=== PATIENT | male | born 1970 | race Caucasian/White ===

== ENCOUNTER 2021-04-06 07:09 | Day surgery (SDC) | payer OTHER, SELFPAY ==
[2021-04-06 08:09] VITALS: BP 144/77; PULSE 78; RESP 16; TEMP 36.6; O2SAT 96; BMI 42.4
[2021-04-06] MEDS: Lactated Ringers 1,000 ML 100 ML IV ×2 (08:40→10:18)
[2021-04-06] MEDS: Cefazolin 2 GM in 0.9% Normal Saline 100 ML IV (09:14)
--- NOTE | 2021-04-06 09:18 | PCM.HP.BLA ---
History and Physical Date of Admission: 04/06/21 Date of Service:? 02/19/21 Assessment & Plan Problems 1. Primary osteoarthritis of right knee? M17.11 2. Mechanical pain of right knee? M25.561 3. Class 3 severe obesity due to excess calories without serious comorbidity with body mass index (BMI) of 40.0 to 44.9 in adult? E66.01; Z68.41 Plan?- Dr. Elliott Ross, DO Educated that patient that he has cartilage wear on the medial side of his knee and under the patella. Also, educated him that he probably does have meniscus tear due to the cartilage wear. Patient was considering MRI, educated that at this point MRI is not necessary. Options for treatment include steroid injection and aspiration, medial sheet metal erector brace, PT, viscosupplementation, NSAIDs, knee arthroscopy to clean out the area, and down the road partial vs total knee replacement. Educated patient that we could do a knee arthroscopy and then viscosupplementation. He wishes to proceed with a knee arthroscopy and we will see if viscosupplementation is covered by his insurance. He filled out consent today for a knee scope, possible DOS: 04/06/2021. Educated him on the procedure, risks, benefits and post op course. Patient did not want to do bracing because he does not think he would wear it. In the future if he needs a? knee arthroplasty he was told that his weight would have to be 285 pounds and that he could not smoke cigars for 6 weeks pre and post op. Today we sent him a prescription for Meloxicam and did a steroid injection in the office. Educated him that overall weight loss and possibly glucosamine chondroitin could lessen his pain. Patient's questions and concerns were answered. Patient is in agreement with plan. Orders ?Orders: ? Ortho Injections 02/19/21 G89.29, M17.11, M23.91, M25.561 Dr. Elliott Ross, DO Medications ?New: ? meloxicam ?? Do not take in conjunction with other NSAIDs. Stop 7 days before surgery. 15 mg PO DAILY 30 tabs 0RF Right Knee Pain M17.11 ALBERTINA Uribe 03/03/21 0918 <Electronically signed by Elliott Ross DO> Date Elliott Ross DO cc: ? ~* Signed Intake Intake Visit Reasons: RIGHT KNEE Allergies No Known Allergies Allergy (Unverified 08/14/20 11:45) PFSH Surgical History? (Updated 08/14/20 @ 13:00 by Lisha Saini) H/O hernia repair (Acute) History of tonsillectomy (Acute) Family History? (Updated 08/14/20 @ 13:00 by Lisha Saini) Father heart surgeryMother Cancer Social History? (Updated 02/19/21 @ 10:[address] Elliott Ross DO) household members:? children alcohol intake:? current alcohol intake frequency: holidays/special occasions only what type of physical activity do you participate in:? walking do you feel safe at home:? Yes HPI RIGHT KNEE: Details: Parts of this documentation were recorded by a scribe, this documentation accurately reflects the service provided and the decisions made by me, Dr. Elliott Ross DO 02/19/21 0800. ELLIOTT GREEN is a 50 year old M here today for f/u of right knee pain. Pain (location, quality, quantity, radiation): right knee pain medial side, dull when sitting, aching when walking, 4/10 in the office, radiates behind the knee occasionally. 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 Prior Hx (injury, surgery, prior issues with extremity): Denies all. Aggravating factor (position, tasks): Driving, walking about half a mile, steeping off curbs. Treatments (ice/heat , Medication, injections, home exercises): Last injection 08/14/2020, helped for about 1.5 months. When he is not on the road he will put ice on it. Tried Aleve, ibuprofen, Tylenol PRN with minimal relief. He does not have time to do PT due to his job, so he does some home exercise on his own. Comorbidities (BMI, DM, Inflammatory conditions, blood thinner, chemotherapy): Denies DM, inflammatory conditions, blood thinners, chemotherapy.? BMI 42.3 (ht: 5'11 wt:303) Social (upper extremity dominance, profession, tobacco/drugs/ETOH: milk pickup truck driver. Smokes cigar 2x per month. Occasional ETOH 1x per month. Other: Instability when walking off curbs, pain with some movements that make it feel like it could give out, popping. Going down stairs bothers him some.? Does have mechanical knee pain that is painful regularly ROS Const Reports system reviewed and no additional complaints, except as docu, Denies chills, Denies fatigue, Denies fever(s), Denies weakness Card Reports system reviewed and no additional complaints, except as docu, Denies chest pain, Denies shortness of breath Resp Reports system reviewed and no additional complaints, except as docu, Denies chest congestion, Denies cough, Denies shortness of breath GI Reports system reviewed and no additional complaints, except as docu, Denies abdominal pain, Denies constipation, Denies incontinent of stools, Denies loose stools Reports system reviewed and no additional complaints, except as docu, Denies urinary incontinence Musc Reports system reviewed and no additional complaints, except as docu, Reports abnormal walking, Reports joint pain, Reports joint swelling, Denies numbness, Denies stiffness, Denies tingling Skin/Breast Reports system reviewed and no additional complaints, except as docu, Denies dry skin, Denies redness, Denies lesions, Denies new lesions, Denies non-healing lesions, Denies itching, Denies rash, Denies skin ulcer, Denies sores, Denies unusual bruising, Denies wounds Neuro Yes system reviewed and no additional complaints, except as docu, Yes abnormal walking, No numbness, No radiating pain, No tingling, No weakness Endo Denies fatigue Ortho Exam General General: Yes no acute distress Neurologic: Yes alert, Yes oriented x3 Psychologic: Yes reasonable and appropriate Right Knee Skin/Wound: No erythema, No ecchymosis, Yes swelling (minimal) Contralateral Normal: Yes Homans Sign: No 1+:?Effusion Knee ROM: Yes ROM-Extension -20 to 0, Yes ROM-Flexion 0-140 (112 degrees) Examination: Yes Med jt line tenderness, No Lat jt line tenderness, No TTP inf pole patella, Yes Crepitus (With extension), Yes Pain with flexion (Minor tightness), No Pain with extention, Yes Doe's Test (Pain medial [facility]), No TTP Patellar tendon, No TTP Pes Anserine Quad Atrophy: No Stability:?NML:?Anterior Drawer,?NML:?Posterior Drawer Popliteal Adenopathy: No Patella Grind: Yes KNEE: 2 mm of medial gapping. Strength is good against resistance, normal sensation, normal distal pulses. Office Procedures Depo-Medrol 40 mg/mL suspension for injection (methylprednisolone acetate) 40 mg intra-articular ONCE Injections Yes Knee? Right Details: Obtained consent for injection.? Under sterile conditions, injected the patient's right knee with 2cc bupivacaine, 2cc lidocaine and 1cc depomedrol.? The patient tolerated the injection well without any noted complication.? Patient should call our office if redness develops, pain worsens or if they have any concerns. Office Meds Depo-Medrol Performing Provider: Elliott Ross DO Administered by: Elliott Ross DO on 02/19/21 09:30 Dose Route Admin Location Lot Number Expiration Date NDC Gamma Operator 40 mg intra-articular R knee [id number] 02/11/22 8922-6278-15 [employer] Supplemental Info 08/14/2020 Right Knee Xray: Medial and mild patellofemoral joint arthrosis. Trace joint fluid. Assessment & Plan Problems 1. Primary osteoarthritis of right knee? M17.11 2. Mechanical pain of right knee? M25.561 3. Class 3 severe obesity due to excess calories without serious comorbidity with body mass index (BMI) of 40.0 to 44.9 in adult? E66.01; Z68.41 Plan?- Dr. Elliott Ross DO Educated that patient that he has cartilage wear on the medial side of his knee and under the patella. Also, educated him that he probably does have meniscus tear due to the cartilage wear. Patient was considering MRI, educated that at this point MRI is not necessary. Options for treatment include steroid injection and aspiration, medial sheet metal erector brace, PT, viscosupplementation, NSAIDs, knee arthroscopy to clean out the area, and down the road partial vs total knee replacement. Educated patient that we could do a knee arthroscopy and then viscosupplementation. He wishes to proceed with a knee arthroscopy and we will see if viscosupplementation is covered by his insurance. He filled out consent today for a knee scope, possible DOS: 04/06/2021. Educated him on the procedure, risks, benefits and post op course. Patient did not want to do bracing because he does not think he would wear it. In the future if he needs a? knee arthroplasty he was told that his weight would have to be 285 pounds and that he could not smoke cigars for 6 weeks pre and post op. Today we sent him a prescription for Meloxicam and did a steroid injection in the office. Educated him that overall weight loss and possibly glucosamine chondroitin could lessen his pain. Patient's questions and concerns were answered. Patient is in agreement with plan. Orders ?Orders: ? Ortho Injections Today G89.29, M17.11, M23.91, M25.561 Dr. Elliott Ross, DO Medications ?New:I have re-examined the patient. There are no clinical changes since date of exam
[2021-04-06] MEDS: MethylPREDNISolone Acetate 40 MG/ML Vial IM (09:37)
[2021-04-06] MEDS: Epinephrine (1 mg/ml) 1 MG/ML VIAL (09:37)
[2021-04-06] MEDS: Bupivacaine Mpf 0.5% 30 ML VIAL (09:37)
--- NOTE | 2021-04-06 09:54 | EX.PCM.DISCH ---
Discharge Instructions Activity Keep extremity elevated above heart level: Operative Extremity Additional Activity Instructions:: Ice and elevate next 72 hours .keep dressing on clean and dry for 48 hours then may remove begin showering daily but do not submerge in tub or pool. After shower may apply Band-Aids . Encourage knee range of motion weightbearing as tolerated, use crutches until confident in knee then may discontinue. No strenuous activity. When not ambulating keep iced and elevated next 72 hours. Do not mix pain medication with recreational drugs or alcohol only take as prescribed can be addictive and abusive, call with any questions or concerns. Follow Up Care Please Follow Up With: Elliott Ross DO When: 2 weeks Test Results: Test results from this visit will be discussed in further detail at your follow-up appointment, if applicable. Discharge Plan Admission Attending Provider: Elliott Ross Primary Care Provider: Prerna Okeefe Primary Discharge Orders/Prescriptions Prescriptions: New hydrocodone-acetaminophen 5-325 mg tablet 1 tab PO Q4H PRN (Reason: pain) 5 Days Qty: 30 RF: 0 No Action multivitamin with minerals [Men's One Daily] Tablet 1 tab PO DAILY RF: 0 Testosterone Booster 2 tab PO/SL DAILY RF: 0 Referrals / Follow Up: Care Physician,No Primary [Primary Care Provider] - Disposition Discharge Orders: Discharge Patient (Routine); Ordered 04/06/21 Ordered By: Dr. Elliott Ross
--- NOTE | 2021-04-06 09:56 | OP.PCM_ITS ---
Report of Operation Description of Surgical Findings:: Preop diagnosis: Right knee medial meniscus tear DJD Postoperative diagnosis: Degenerative tearing posterior body and horn of medial meniscus grade 4 kissing lesion medial compartment grade 4 cartilage wear trochlea grade 2-3 lateral tibial plateau, loose body Procedure: Right knee arthroscopic partial medial meniscectomy chondroplasty of medial and patellofemoral compartment removal of loose body Anesthesia: General Estimated blood loss: 5 mL Tourniquet time: 25 minutes 300 mmHg Complications: none Indication for procedure: 50-year-old male with ongoing mechanical knee pain has failed conservative treatment the patient did wish to proceed with an elective arthroscopic surgery to attempt to alleviate the symptoms. Risk benefits and alternatives of the procedure were reviewed including risk of bleeding infection nerve artery tissue damage need for further surgery continued pain and expected postoperative course. Procedure: The patient was met in the preoperative holding area. The operative extremity was identified by both patient and physician and family and marked. Patient was brought back to the operating room on a wheeled cart and transferred to the operating table in the supine position. Anesthesia was started. A well- padded tourniquet was placed on the operative extremity. A lower extremity leg angel was secured to the operative extremity. The contralateral extremity was well-padded and the end of the bed was flexed to 90 degrees. The patient was prepped and draped in the usual sterile fashion. A timeout was called to ensure the proper patient, procedure, and extremity were being contemplated. 0.5% Marcaine with epinephrine was injected into the planned incisional areas under the skin only. An Esmarch was used to exsanguinate the extremity and the tourniquet was inflated. An 11 blade scalpel was used to make a stab incision in the anterior lateral portal. The arthroscope was inserted into the intercondylar notch and inflow and outflow tubes were attached. Arthroscopic visualization began. The medial compartment was entered. An 18-gauge spinal needle was used to establish the placement for anterior medial portal. An 11 blade scalpel was used to make a stab incision. Blunt probe was inserted followed by a meniscal probe. Immediately there was noted to be grade 4 kissing lesion of the periphery of the posterior aspect of the medial tibial plateau in the periphery of the medial aspect of the medial femoral condyle in addition there was degenerative tearing of the posterior horn and body of the medial meniscus with the use of our scopic biting instruments shaver and ArthroCare wand partial medial meniscectomy and chondroplasty was performed the ACL was found to be intact. The lateral compartment was entered there was osteophytic spur formation on the medial aspect of the lateral femoral condyle and a loose body osteophyte within the soft tissues adjacent to the lateral tibial plateau loose body was removed the arthroscope was switched to the medial portal to complete the procedure. The medial and lateral gutters were inspected and were free of loose bodies. The patellofemoral joint was inspected grade 4 cartilage wear throughout the trochlea chondroplasty was performed to a stable rim of cartilage tissue. There was good patellar tracking. The knee was thoroughly irrigated and drained. An intra-articular injection with 5 cc 0.5% Marcaine plain and 40 mg of Depo-Medrol was injected intra-articularly. The arthroscope was removed the portals were closed with 3-0 nylon arthroscopic stitches. Followed by Xeroform 4 x 4's ABDs web roll and an Spike wrap. The tourniquet was let down and the drapes were removed. All counts were correct. The patient was brought back to the PACU in stable condition.
[2021-04-06 10:11] VITALS: BP 144/77; BP 170/105; PULSE 81; RESP 18; TEMP 36.1; O2SAT 97
[2021-04-06 10:15] VITALS: BP 144/77; BP 157/93; PULSE 80; RESP 18; O2SAT 97
[2021-04-06 10:30] VITALS: BP 144/77; BP 154/95; PULSE 77; RESP 18; O2SAT 98
[2021-04-06 10:33] VITALS: BP 144/100; BP 144/77; PULSE 77; RESP 18; O2SAT 98
[2021-04-06] MEDS: HYDROcodone Bitartrate/Apap 5/325 Tablet PO (11:11)
[2021-04-06 11:35] VITALS: BP 131/80; BP 144/77; PULSE 77; RESP 16; TEMP 36.6; O2SAT 97
== END 2021-04-06 11:55 ==
LOC: SDC 07:10 → AC 07:10
PROVIDERS: Referring Provider Orthopaedic Surgery; Visit Provider Orthopaedic Surgery
PROC: (CPT 29870; principal; 2021-04-06 08:55)
DX: S83.241A Other tear of medial meniscus, current injury, right knee, initial encounter (principal); X58.XXXA Exposure to other specified factors, initial encounter; Y93.9 Activity, unspecified; Y92.9 Unspecified place or not applicable; Y99.9 Unspecified external cause status; M17.11 Unilateral primary osteoarthritis, right knee; Z20.822 Contact with and (suspected) exposure to COVID-19; E66.01 Morbid (severe) obesity due to excess calories; Z68.41 Body mass index [BMI] 40.0-44.9, adult; F17.290 Nicotine dependence, other tobacco product, uncomplicated
CPT/HCPCS: 01400; 29881; 87426; C9803; J7120; J2405